=== PATIENT | female | born 1930 | race Asian ===

== ENCOUNTER → 2016-06-17 | Outpatient (CLI) | payer MEDICARE, BC, OTHER ==
[~2016-06-17] MED LIST: ANAS1TAB49 PO; ASPI81TA2 PO; ATOR20TA86 PO; ESCI10TA PO; LEVO75TA4 PO; OMEP10 PO; VITAD1000
== END | disposition home or self-care (01) ==
LOC: RADPV 10:10
PROVIDERS: ATTEND Legal Medicine
DX: J18.9 Pneumonia, unspecified organism (principal); J98.4 Other disorders of lung

== ENCOUNTER → 2016-09-07 | Outpatient (CLI) | payer MEDICARE, BC, OTHER | END | disposition home or self-care (01) | LOC: RADMN 10:04 | PROVIDERS: ATTEND Legal Medicine | DX: G31.9 Degenerative disease of nervous system, unspecified (principal); I67.2 Cerebral atherosclerosis; R90.82 White matter disease, unspecified; I65.29 Occlusion and stenosis of unspecified carotid artery | CPT/HCPCS: 70450 ==

== ENCOUNTER → 2017-01-25 | Outpatient (CLI) | payer MEDICARE, BC, OTHER ==
[~2017-01-25] MED LIST changes: +ASPI-1198 PO; -ASPI81TA2 PO; +ATEN50TA PO; +BACI3.5O24 OU; +BISA5TAB12 PO; +DSS100 PO; +ERYT1OIN7 OU; +LEVO500 PO; +MOM30 PO; +OMEP20 PO; +SIMV-260 PO; -VITAD1000; +VITAD1000 PO
[2017-01-25 11:25] LABS: EOSINOPHILS # (AUTO) 0.34 K/uL (0.00-0.70); EOSINOPHILS % (AUTO) 5.79 % (1.0-6.0); HEMOGLOBIN 10.2 g/dL (12.0-16.0); LYMPHOCYTES # (AUTO) 2.5 K/uL (1.0-4.8); LYMPHOCYTES % (AUTO) 42.1 % (22.0-44.0); MEAN CORPUSCULAR VOLUME 94 fL (80-100); MONOCYTES # (AUTO) 0.6 K/uL (0.1-1.0); MONOCYTES % (AUTO) 9.4 % (2.0-9.0); NEUTROPHILS # (AUTO) 2.5 K/uL (1.8-7.7); NEUTROPHILS % (AUTO) 42.7 % (40.0-70.0); PLATELET COUNT (AUTO) 214 K/uL (150-450); RED CELL DISTRIBUTION WIDTH 14.8 % (11.5-14.5); WHITE BLOOD COUNT (AUTO) 5.9 K/uL (4.5-11.0)
== END | disposition home or self-care (01) ==
LOC: MSR 10:57
PROVIDERS: ATTEND Legal Medicine
DX: R91.8 Other nonspecific abnormal finding of lung field (principal); I70.0 Atherosclerosis of aorta

== ENCOUNTER 2017-04-07 10:39 | Inpatient (IN) | payer MEDICARE, BC ==
[~2017-04-07] VITALS: Ht 152.4 cm; Wt 43.7 kg
[~2017-04-07 10:39] MED LIST changes: -ATEN50TA PO; -BACI3.5O24 OU; -BISA5TAB12 PO; -DSS100 PO; -ERYT1OIN7 OU; -LEVO500 PO; -MOM30 PO; -OMEP20 PO; -SIMV-260 PO
[2017-04-07] MEDS ORDERED: SIMV-260 PO (11:05)
[2017-04-07] MEDS ORDERED: ERYT1OIN7 OU (11:05)
[2017-04-07] MEDS ORDERED: BACI3.5O24 OU (11:05)
[2017-04-07] MEDS ORDERED: ATEN50TA PO (11:05)
[2017-04-07 12:33] LABS: INFLUENZA TYPE A POSITIVE FOR TYPE A (NEGATIVE); INFLUENZA TYPE B NEGATIVE FOR TYPE B (NEGATIVE)
[2017-04-07] MEDS ORDERED: SODIUM CHLORIDE 0.9% 1,000 ML IV ONE (13:00)
[2017-04-07 13:14] LABS: BASOPHILS % (AUTO) 0.2 % (0.0-2.0); EOSINOPHILS % (AUTO) 2.4 % (1.0-6.0); HEMATOCRIT 34.2 % (36-46); HEMOGLOBIN 11.5 g/dL (12.0-16.0); LYMPHOCYTES # (AUTO) 2.3 K/uL (1.0-4.8); LYMPHOCYTES % (AUTO) 29.7 % (22.0-44.0); MEAN CORPUSCULAR HEMOGLOBIN 31.1 pg (26.0-34.0); MEAN CORPUSCULAR HGB CONC 33.7 G/dL (31.0-37.0); MEAN CORPUSCULAR VOLUME 92 fL (80-100); MONOCYTES # (AUTO) 0.4 K/uL (0.1-1.0); MONOCYTES % (AUTO) 4.9 % (2.0-9.0); NEUTROPHILS # (AUTO) 4.8 K/uL (1.8-7.7); NEUTROPHILS % (AUTO) 62.8 % (40.0-70.0); PLATELET COUNT (AUTO) 184 K/uL (150-450); RED CELL DISTRIBUTION WIDTH 15.4 % (11.5-14.5)
[2017-04-07] MEDS ORDERED: ONDANSETRON HCL 4 MG/2 ML VIAL IVP PRN ×2 (13:30→16:30)
[2017-04-07] MEDS ORDERED: 0.9% SODIUM CHLORIDE 10 ML SYRINGE IVP PRN (13:30)
[2017-04-07] MEDS ORDERED: ACETAMINOPHEN 325 MG TABLET PO PRN (13:30)
[2017-04-07 13:33] LABS: CALCIUM, TOTAL 8.1 mg/dL (8.8-10.5); CREATININE 0.96 mg/dL (0.60-1.30); POTASSIUM 4.4 mmol/L (3.5-5.1)
[2017-04-07] MEDS: ACETAMINOPHEN 650 MG RECTAL SUPPOSITORY PR ONE ×2 (13:37→13:59)
[2017-04-07 13:40] LABS: BILIRUBIN,TOTAL 0.4 mg/dL (0.1-1.0)
[2017-04-07] MEDS ORDERED: ACETAMINOPHEN 1000 MG/ISO-OSM 100 ML IV ONE (14:00)
[2017-04-07] MEDS ORDERED: ALBUTEROL SULFATE 2.5 MG/0.5 ML NEB SOLUTION NEB PRN (16:30)
[2017-04-07] MEDS ORDERED: MAGNESIUM HYDROXIDE SUSPENSION 30 ML UDCUP PO PRN (16:30)
[2017-04-07] MEDS ORDERED: IPRATROPIUM BROMIDE 0.5 MG/2.5 ML NEB SOLUTION NEB PRN (16:30)
[2017-04-07] MEDS ORDERED: ACETAMINOPHEN 650 MG RECTAL SUPPOSITORY PR PRN (16:45)
[2017-04-07 18:50] VITALS: BP 124/94
[2017-04-07 23:16] VITALS: BP 127/77
[2017-04-08 04:18] VITALS: BP 134/71
[2017-04-08] MEDS: LEVOTHYROXINE SODIUM 75 MCG TABLET PO SCH (06:30)
[2017-04-08 07:26] LABS: BASOPHILS % (AUTO) 0.4 % (0.0-2.0); EOSINOPHILS % (AUTO) 2.7 % (1.0-6.0); HEMATOCRIT 31.4 % (36-46); HEMOGLOBIN 10.8 g/dL (12.0-16.0); LYMPHOCYTES % (AUTO) 38.9 % (22.0-44.0); MEAN CORPUSCULAR HEMOGLOBIN 31.5 pg (26.0-34.0); MEAN CORPUSCULAR HGB CONC 34.3 G/dL (31.0-37.0); MEAN CORPUSCULAR VOLUME 92 fL (80-100); MONOCYTES # (AUTO) 0.4 K/uL (0.1-1.0); MONOCYTES % (AUTO) 8.1 % (2.0-9.0); NEUTROPHILS # (AUTO) 2.6 K/uL (1.8-7.7); NEUTROPHILS % (AUTO) 49.9 % (40.0-70.0); PLATELET COUNT (AUTO) 154 K/uL (150-450); RED BLOOD CELL COUNT(AUTO) 3.42 MIL/uL (4.00-5.20); RED CELL DISTRIBUTION WIDTH 15.1 % (11.5-14.5)
[2017-04-08 07:31] VITALS: BP 122/68
[2017-04-08 07:42] LABS: ANION GAP 4 mmol/L (8-16); CARBON DIOXIDE 29 mmol/L (22-29); CHLORIDE 104 mmol/L (98-107); GLOMERULAR FILTR. RATE CALC 59 mL/min (>60); GLUCOSE,RANDOM 114 mg/dL (70-110); POTASSIUM 4.1 mmol/L (3.5-5.1); SODIUM SERUM 137 mmol/L (136-145); UREA NITROGEN, BLOOD 14 mg/dL (7-18)
[2017-04-08 07:43] LABS: CALCIUM, TOTAL 7.9 mg/dL (8.8-10.5); CHOL/HDL RATIO 3.9 (3.9-5.7); CHOLESTEROL 90 mg/dL (131-200); CREATINE KINASE, TOTAL 43 U/L (26-192); HDL CHOLESTEROL 23 mg/dL (40-60); LDL CHOL (CALC.) 39 mg/dL (0-130); THYROID STIMULATING HORMONE 0.15 uIU/mL (0.36-3.74); TRIGLYCERIDES 138 mg/dL (15-150)
[2017-04-08 08:16] LABS: HEMOGLOBIN A1C 6.7 % (4.5-6.2)
[2017-04-08] MEDS: ESCITALOPRAM OXALATE 10 MG TABLET PO SCH (09:00)
[2017-04-08] MEDS: ASPIRIN 81 MG CHEWABLE TABLET PO SCH (09:00)
[2017-04-08] MEDS: PANTOPRAZOLE SODIUM 40 MG/VIAL IVP SCH (10:18)
[2017-04-08] MEDS: ENOXAPARIN SODIUM 30 MG/0.3 ML PF SYRINGE SQ SCH (10:18)
[2017-04-08 10:52] VITALS: BP 126/70
[2017-04-08 12:05] LABS: FOLATE SERUM 7.1 ng/mL (5.4-)
[2017-04-08] MEDS: LEVOFLOXACIN 500 MG/D5% WATER 100 ML IV SCH (12:11)
[2017-04-08] MEDS ORDERED: SODIUM CHLORIDE 0.9% 100 ML ONE (12:50)
[2017-04-08 14:50] VITALS: BP 147/82
[2017-04-08 20:10] VITALS: BP 152/85
[2017-04-08] MEDS: OSELTAMIVIR PHOSPHATE 30 MG CAPSULE PO SCH (22:12)
[2017-04-08 23:35] VITALS: BP 149/79
[2017-04-09 04:36] VITALS: BP 143/86
[2017-04-09] MEDS: LEVOTHYROXINE SODIUM 75 MCG TABLET PO SCH (05:27)
[2017-04-09 07:30] VITALS: BP 153/98
[2017-04-09] MEDS: ASPIRIN 81 MG CHEWABLE TABLET PO SCH (08:34)
[2017-04-09] MEDS: ESCITALOPRAM OXALATE 10 MG TABLET PO SCH (08:34)
[2017-04-09] MEDS: PANTOPRAZOLE SODIUM 40 MG/VIAL IVP SCH (08:34)
[2017-04-09] MEDS: OSELTAMIVIR PHOSPHATE 30 MG CAPSULE PO SCH ×2 (08:34→23:36)
[2017-04-09] MEDS: ENOXAPARIN SODIUM 30 MG/0.3 ML PF SYRINGE SQ SCH (08:35)
[2017-04-09 11:00] VITALS: BP 111/61
[2017-04-09 11:00] LABS: CALCIUM, TOTAL 7.9 mg/dL (8.8-10.5); CREATININE 1.03 mg/dL (0.60-1.30)
[2017-04-09 11:05] LABS: POTASSIUM 3.9 mmol/L (3.5-5.1)
[2017-04-09] MEDS: LEVOFLOXACIN 500 MG/D5% WATER 100 ML IV SCH (12:24)
[2017-04-09 15:06] VITALS: BP 120/68
[2017-04-09 15:29] VITALS: BP 129/69
[2017-04-09 19:24] VITALS: BP 139/59
[2017-04-10 01:44] VITALS: BP 122/82
[2017-04-10] MEDS: LEVOTHYROXINE SODIUM 75 MCG TABLET PO SCH (05:43)
[2017-04-10 05:50] VITALS: BP 136/78
[2017-04-10 07:30] VITALS: BP 116/67
[2017-04-10 07:55] LABS: CREATININE 0.93 mg/dL (0.60-1.30); POTASSIUM 3.4 mmol/L (3.5-5.1)
[2017-04-10] MEDS: ASPIRIN 81 MG CHEWABLE TABLET PO SCH (09:14)
[2017-04-10] MEDS: OSELTAMIVIR PHOSPHATE 30 MG CAPSULE PO SCH ×2 (09:14→20:43)
[2017-04-10] MEDS: ENOXAPARIN SODIUM 30 MG/0.3 ML PF SYRINGE SQ SCH (09:14)
[2017-04-10] MEDS: PANTOPRAZOLE SODIUM 40 MG/VIAL IVP SCH (09:14)
[2017-04-10] MEDS: ESCITALOPRAM OXALATE 10 MG TABLET PO SCH (09:15)
[2017-04-10 11:36] VITALS: BP 121/67
[2017-04-10] MEDS ORDERED: SODIUM CHLORIDE 0.9% 500 ML IV ONE (12:40)
[2017-04-10] MEDS: LEVOFLOXACIN 500 MG/D5% WATER 100 ML IV SCH (12:44)
[2017-04-10 15:20] VITALS: BP 145/85
[2017-04-10 19:15] VITALS: BP 122/72
[2017-04-10] MEDS ORDERED: POTASSIUM CHL 10 MEQ/WATER 50 ML IV PRN (22:00)
[2017-04-10] MEDS ORDERED: POTASSIUM CHLORIDE 10% 40 MEQ/30 ML LIQUID UDCUP GT PRN (22:00)
[2017-04-11 00:03] VITALS: BP 114/68
[2017-04-11 04:38] VITALS: BP 102/58
[2017-04-11] MEDS: LEVOTHYROXINE SODIUM 75 MCG TABLET PO SCH (05:24)
[2017-04-11 07:27] LABS: CALCIUM, TOTAL 7.8 mg/dL (8.8-10.5); CREATININE 1.02 mg/dL (0.60-1.30); POTASSIUM 4.4 mmol/L (3.5-5.1)
[2017-04-11 07:28] LABS: BASOPHILS % (AUTO) 0.1 % (0.0-2.0); EOSINOPHILS # (AUTO) 0.09 K/uL (0.00-0.70); EOSINOPHILS % (AUTO) 1.35 % (1.0-6.0); HEMATOCRIT 30.1 % (36-46); HEMOGLOBIN 10.3 g/dL (12.0-16.0); LYMPHOCYTES # (AUTO) 2.3 K/uL (1.0-4.8); MEAN CORPUSCULAR HEMOGLOBIN 31.6 pg (26.0-34.0); MEAN CORPUSCULAR HGB CONC 34.2 G/dL (31.0-37.0); MEAN CORPUSCULAR VOLUME 92 fL (80-100); MONOCYTES # (AUTO) 0.5 K/uL (0.1-1.0); MONOCYTES % (AUTO) 7.2 % (2.0-9.0); NEUTROPHILS # (AUTO) 3.7 K/uL (1.8-7.7); NEUTROPHILS % (AUTO) 56.4 % (40.0-70.0); PLATELET COUNT (AUTO) 158 K/uL (150-450); RED BLOOD CELL COUNT(AUTO) 3.26 MIL/uL (4.00-5.20); RED CELL DISTRIBUTION WIDTH 14.8 % (11.5-14.5)
[2017-04-11 08:31] VITALS: BP 124/63
[2017-04-11] MEDS: ENOXAPARIN SODIUM 30 MG/0.3 ML PF SYRINGE SQ SCH (09:23)
[2017-04-11] MEDS: PANTOPRAZOLE SODIUM 40 MG/VIAL IVP SCH (09:24)
[2017-04-11] MEDS: ASPIRIN 81 MG CHEWABLE TABLET PO SCH (09:24)
[2017-04-11] MEDS: OSELTAMIVIR PHOSPHATE 30 MG CAPSULE PO SCH ×2 (09:24→22:19)
[2017-04-11] MEDS: ESCITALOPRAM OXALATE 10 MG TABLET PO SCH (09:25)
[2017-04-11 12:27] VITALS: BP 145/70
[2017-04-11] MEDS: LEVOFLOXACIN 500 MG/D5% WATER 100 ML IV SCH (13:08)
[2017-04-11 15:54] VITALS: BP 223/58
[2017-04-11 22:20] VITALS: BP 152/97
[2017-04-12 00:35] VITALS: BP 117/81
[2017-04-12 04:13] VITALS: BP 134/87
[2017-04-12] MEDS: LEVOTHYROXINE SODIUM 75 MCG TABLET PO SCH (06:42)
[2017-04-12 07:12] LABS: CALCIUM, TOTAL 8.3 mg/dL (8.8-10.5); CREATININE 0.93 mg/dL (0.60-1.30); POTASSIUM 4.4 mmol/L (3.5-5.1)
[2017-04-12 07:17] LABS: BASOPHILS % (AUTO) 0.3 % (0.0-2.0); EOSINOPHILS % (AUTO) 2.5 % (1.0-6.0); HEMOGLOBIN 11.2 g/dL (12.0-16.0); LYMPHOCYTES % (AUTO) 29.5 % (22.0-44.0); MEAN CORPUSCULAR HEMOGLOBIN 31.1 pg (26.0-34.0); MEAN CORPUSCULAR VOLUME 91 fL (80-100); MONOCYTES # (AUTO) 0.7 K/uL (0.1-1.0); MONOCYTES % (AUTO) 10.1 % (2.0-9.0); NEUTROPHILS # (AUTO) 3.9 K/uL (1.8-7.7); NEUTROPHILS % (AUTO) 57.6 % (40.0-70.0); PLATELET COUNT (AUTO) 226 K/uL (150-450); RED CELL DISTRIBUTION WIDTH 15.4 % (11.5-14.5)
[2017-04-12] MEDS: PANTOPRAZOLE SODIUM 40 MG/VIAL IVP SCH (10:21)
[2017-04-12] MEDS: ASPIRIN 81 MG CHEWABLE TABLET PO SCH (10:21)
[2017-04-12] MEDS: ENOXAPARIN SODIUM 30 MG/0.3 ML PF SYRINGE SQ SCH (10:21)
[2017-04-12] MEDS: OSELTAMIVIR PHOSPHATE 30 MG CAPSULE PO SCH (10:22)
[2017-04-12] MEDS: ESCITALOPRAM OXALATE 10 MG TABLET PO SCH (10:22)
[2017-04-12 11:43] VITALS: BP 137/71
[2017-04-12] MEDS: LEVOFLOXACIN 500 MG/D5% WATER 100 ML IV SCH (12:00)
[2017-04-12] MEDS ORDERED: OMEP20 PO (14:49)
[2017-04-12 15:51] VITALS: BP 126/54
[2017-04-19] MEDS ORDERED: BISA5TAB12 PO (12:44)
[2017-04-19] MEDS ORDERED: MOM30 PO (12:44)
[2017-04-19] MEDS ORDERED: DSS100 PO (12:44)
[2017-04-19] MEDS ORDERED: LEVO500 PO (12:44)
== END 2017-04-12 18:55 | DRG 194 ==
LOC: EMS 10:41 → 5S 18:06 → 4E 04-09 13:05 → 6N 04-12 07:56
PROVIDERS: ADMIT Internal Medicine Geriatric Medicine; ATTEND Internal Medicine Geriatric Medicine
DX: J10.1 Influenza due to other identified influenza virus with other respiratory manifestations (principal); E87.1 Hypo-osmolality and hyponatremia; R64 Cachexia; J84.10 Pulmonary fibrosis, unspecified; E44.0 Moderate protein-calorie malnutrition; R13.10 Dysphagia, unspecified; D64.9 Anemia, unspecified; Z68.1 Body mass index [BMI] 19.9 or less, adult; Z66 Do not resuscitate; R26.9 Unspecified abnormalities of gait and mobility; G30.9 Alzheimer's disease, unspecified; F01.50 Vascular dementia, unspecified severity, without behavioral disturbance, psychotic disturbance, mood disturbance, and anxiety; E03.9 Hypothyroidism, unspecified; I10 Essential (primary) hypertension; K21.9 Gastro-esophageal reflux disease without esophagitis; F02.80 Dementia in other diseases classified elsewhere, unspecified severity, without behavioral disturbance, psychotic disturbance, mood disturbance, and anxiety; E78.5 Hyperlipidemia, unspecified; Z79.2 Long term (current) use of antibiotics; Z79.82 Long term (current) use of aspirin; Z79.899 Other long term (current) drug therapy; Z87.440 Personal history of urinary (tract) infections; Z98.891 History of uterine scar from previous surgery; Z90.10 Acquired absence of unspecified breast and nipple; I69.398 Other sequelae of cerebral infarction
CPT/HCPCS: 82306; 82607; 82746; 83036; 83605; 83735; 84443; 87040; 87804; 92610; 93306; 96361; 96374; 99285; C9113; J0131; J1650; J1956; J7030; J7040; J7050